=== PATIENT | female | born 1980 | race Caucasian/White ===

== ENCOUNTER 2016-04-16 15:25 | Inpatient (IN) | payer OTHER ==
[2016-04-16] MEDS ORDERED: MINERAL OIL 60 ML OIL TP PRN (15:40)
[2016-04-16] MEDS ORDERED: TERBUTALINE SULFATE 1 MG/ML VIAL IV PRN (15:40)
[2016-04-16] MEDS ORDERED: OXYTOCIN/RINGERS LACTATE 1,000 ML IV PRN (15:40)
[2016-04-16] MEDS ORDERED: LR 1,000 ML IV PRN (15:40)
[2016-04-16] MEDS ORDERED: EPSOM SALT 454 GM TP PRN (15:40)
[2016-04-16] MEDS ORDERED: LIDOCAINE 1% 30 ML SDV SC PRN (15:40)
[2016-04-16 15:55] LABS: % IMMATURE GRANULYOCYTES 0.5 % (0.0-1.1); ABSOLUTE IMMATURE GRANULOCYTES 0.06 10^3/uL (0.00-0.10); ADD DIFF? NO; ADD MORPH? NO; ADD SCAN? NO; ATYPICAL LYMPHOCYTE FLAG 0 (0-99); FRAGMENT RBC FLAG 0 (0-99); HEMATOCRIT 38.1 % (38.0-47.0); HEMOGLOBIN 12.8 g/dL (12.6-16.3); LEFT SHIFT FLG 0 (0-99); LIPEMIA HEMOLYSIS FLAG 80 (0-99); MEAN CELL HEMOGLOBIN 28.1 pg (27.9-34.1); MEAN CELL HEMOGLOBIN CONCENTR. 33.6 g/dL (32.4-36.7); MEAN CELL VOLUME 83.6 fL (81.5-99.8); MEAN PLATELET VOLUME 11.2 fL (8.7-11.7); PLATELET CLUMPS FLAG 10 (0-99); PLATELET COUNT 199 10^3/uL (150-400); RED BLOOD CELL COUNT 4.56 10^6/uL (4.18-5.33); RED CELL DISTRIBUTION WIDTH 13.3 % (11.5-15.2)
[2016-04-16] MEDS ORDERED: fentaNYL 100 MCG/2 ML INJ ONE (16:07)
[2016-04-16] MEDS ORDERED: BUPIVACAINE 0.25% 30 ML SDV ONE (16:08)
[2016-04-16] MEDS ORDERED: fentaNYL 2MCG/ML/BUP 0.1% RTU 100 ML BAG EP ONE (16:08)
[2016-04-16] MEDS ORDERED: PHENYLEPHRINE HCL 100 MCG/ML SYR ONE (16:09)
[2016-04-16] MEDS ORDERED: AMMONIA AROMATIC 1 EACH AMP IH ONE ×2 (16:10→16:12)
[2016-04-16] MEDS ORDERED: TERBUTALINE SULFATE 1 MG/ML VIAL ONE (16:10)
[2016-04-16] MEDS ORDERED: LIDOCAINE 1% 30 ML SDV ONE (16:10)
[2016-04-16] MEDS ORDERED: MISOPROSTOL 200 MCG TAB ONE (16:11)
[2016-04-16] MEDS ORDERED: OXYTOCIN 10 UNIT/ML VIAL ONE ×2 (16:11→21:42)
[2016-04-16] MEDS ORDERED: PHENYLEPHRINE HCL 100 MCG/ML SYR IVP PRN (16:12)
[2016-04-16] MEDS ORDERED: NALOXONE HCL 0.4 MG/ML INJ IVP PRN (16:12)
[2016-04-16] MEDS ORDERED: LR 500 ML IV SCH (16:30)
[2016-04-16] MEDS ORDERED: fentaNYL 2MCG/ML/BUP 0.1% RTU 100 ML EP SCH (16:30)
--- NOTE | 2016-04-16 18:11 | GHP ---
[f rep st] PREOP HISTORY AND PHYSICAL DATE OF ADMISSION: 04/16/2016 PRE-ADMISSION DIAGNOSIS: Intrauterine at 39-2/7 weeks gestation, in active labor. HISTORY OF PRESENT ILLNESS: Kellie is a 35-year-old, 3, para 0-0-2-0, with a last menstrual p eriod of 07/09/2015 and an EDC of 04/21/2016, which was confirmed by a 10-week ultrasound. The patie sharon has had good care at [facility] since registration at 10 weeks and she has prog ressed to 39 weeks gestation without complication. She has a history of premature rupture of the membranes and abruption secondary to chorioamnionitis at 19 weeks with her 1st , and in this she has been treated with progesterone IM and then vaginal suppositories. Other than that, she has had normal labs in this , normal ultrasounds in this and progressed to 39 weeks. She began having contractions approximately noon on the , which became increasing i n intensity and severity. When she was admitted to the hospital her cervix is 5 cm, 80%, and -1 stat ion. The patient has received an epidural and immediately after the epidural there was a decel to the 60s for approximately 5 minutes. This resolved spontaneously with position change and oxygen . Currently, she had artificial rupture of the membranes with clear fluid and is 7 cm and the fetus is in the 130s with early decels category 1 and spontaneous accel. PAST OBSTETRICAL HISTORY: In June 2014, she had a 19-6/7 weeks premature rupture of the mem branes secondary to abruption and chorioamnionitis. That baby was a boy. In April of 2015, she h ad a missed AB at 8 weeks. She had a D and C, and trisomy 21 was suspicious, unverified prior to her miscarriage. This is her 3rd . PAST MEDICAL HISTORY: The patient has history of depression which has become situational with the la st 2 failed pregnancies. She is not on any current medications and she is doing well now. She has a history of migraines. No current medications. 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 Her was checked and he is negative. No other medical problems. PAST SURGICAL HISTORY: [place] teeth extraction and D and C. ALLERGIES: Amoxicillin; she is not sure her reaction. MEDICATIONS: Include: Zoloft, vitamins and probiotics. LABS: She is A positive, antibody negative, RPR nonreactive, rubella immune, hepatitis negative, HIV negative. Cystic fibrosis positive carrier. SMA fragile X were negative. Pap was normal. Gonorrh ea and chlamydia normal. AFP normal. Verifi was normal. A 1-hour GTT was 119. Hematocrit 34.6. GB S is negative. SOCIAL HISTORY: She is . She lives with her , Bossman. She works at [employer], she is a lectu rer. She denies tobacco, alcohol, and drug use. FAMILY HISTORY: Paternal grandfather of Alzheimer's. Mother and maternal grandmother are smoke rs. Maternal grandfather had diabetes. OBJECTIVE: GENERAL: Today, she is afebrile. VITAL SIGNS: Stable. ABDOMEN: Currently, baby is in the 140s, category 1 with early decelerations. Contractions every 2 to 3 minutes. PELVIC: Cervix is 80%, 0 station. She is ruptured for clear fluid. ASSESSMENT/PLAN: A 35-year-old, 3, para 0-0-2-0, 39-2/7 weeks gestation in spontaneous labor . Patient was comfortable with her epidural. We will follow her with expectant management for labor . status is reassuring. /[id number]/MODL
[2016-04-16] MEDS ORDERED: CALCIUM CARBONATE 500 MG CHEWABLE TAB PO PRN (19:22)
[2016-04-16] MEDS ORDERED: HYDROCORTISONE 0.5% CREAM TP PRN (20:03)
[2016-04-16] MEDS ORDERED: HYDROCODONE/APAP 5/325 TAB PO PRN (20:03)
[2016-04-16] MEDS ORDERED: SIMETHICONE 80 MG TAB CHEW PO PRN (20:03)
[2016-04-16] MEDS ORDERED: ACETAMINOPHEN 325 MG TAB PO PRN (20:03)
--- NOTE | 2016-04-16 20:06 | OBPROC ---
- Labor and Delivery Onset of Contractions Date: 04/16/16 Onset of Contractions Time: 14:00 Onset of Contractions Type: Spontaneous Rupture of Membranes Date: 04/16/16 Rupture of Membranes Time: 17:15 Rupture of Membranes Type: Artificial Amniotic Fluid Color: Clear Dilation Complete Time: 19:00 Delivery Type: Spontaneous Placenta Delivery Date: 04/16/16 Placenta Delivery Time: 19:49 Episiotomy/Laceration: 2nd Degree, Perineal Repair: 2-0, Vicryl EBL: 200 Complications: None - Medications Labor Augmentation/Induction Meds Used: None Anesthesia: Epidural - Pitcher Info A Delivery Date: 04/16/16 Delivery Time: 19:45 Sex of : Male Score (1 Min): 8 Score (5 Min): 9
[2016-04-16] MEDS: IBUPROFEN 600 MG TAB PO PRN (20:45)
[2016-04-16] MEDS ORDERED: NIFEdipine 10 MG CAP PO SCH (21:00)
[2016-04-17 00:06] VITALS: O2SAT 95
[2016-04-17] MEDS: IBUPROFEN 600 MG TAB PO PRN ×4 (02:49→20:46)
--- NOTE | 2016-04-17 07:28 | OBPROG ---
OBG Progress Note Assessment/Plan: Assessment: s/p PPD # 1 - pt is stable Plan: Continue routine pp care Encourage ambulation Plan for d/c home in am 04/1804/17/16 07:26 Subjective: Pt seen and examined. She is eating breakfast. Doing well with no complaints. Minimal cramping, moderate lochia. without difficulty. Objective: 04/16/16 15:45 Patient ABO/Rh A POSITIVE 04/16/16 15:45 Temp Pulse Resp BP Pulse Ox 36.8 C 70 16 103/60 95 04/16/16 23:50 04/16/16 23:50 04/16/16 23:50 04/16/16 23:50 04/16/16 23:50 Uterine Position/Fundal Height: Umbilicus -2 Uterine Tone: Firm - Physical Exam General Appearance: WD/WN, alert, no apparent distress Respiratory: lungs clear, normal breath sounds Cardiac/Chest: regular rate, rhythm Abdomen: normal bowel sounds, non-tender, soft, flatus (+) Genitourinary: lochia (moderate) Extremities: non-tender, normal inspection Neuro/Psych: alert, normal mood/affect, oriented x 3 ICD10 Worksheet Patient Problems: Problems Problem Status Diagnosed (spontaneous vaginal delivery) Acute At high risk for complications of intrauterine (IUP) Acute Oligohydramnios in second trimester Acute - ICD10 Problem Qualifiers (1) (spontaneous vaginal delivery)
[2016-04-17] MEDS: DOCUSATE SODIUM 100 MG CAP PO PRN ×2 (08:54→20:46)
[2016-04-18] MEDS: IBUPROFEN 600 MG TAB PO PRN ×2 (02:47→08:57)
--- NOTE | 2016-04-18 07:14 | OBPROG ---
OBG Progress Note Assessment/Plan: Assessment: s/p PPD # 2 - pt is stable Plan: Plan for d/c home today Instructions reviewed with pt No Rx given Cont PNV Pelvic rest RTC in 6 weeks for pp visit 04/18/16 07:12 Subjective: Pt seen and examined. Doing well with no complaints. Minimal cramping, moderate lochia. without difficulty. Objective: 04/16/16 15:45 Patient ABO/Rh A POSITIVE 04/16/16 15:45 Temp Pulse Resp BP Pulse Ox 36.2 C 77 16 111/70 95 04/17/16 20:45 04/17/16 20:45 04/17/16 20:45 04/17/16 20:45 04/17/16 20:45 Uterine Position/Fundal Height: Umbilicus -2 Uterine Tone: Firm - Physical Exam General Appearance: WD/WN, alert, no apparent distress Respiratory: lungs clear, normal breath sounds Cardiac/Chest: regular rate, rhythm Abdomen: normal bowel sounds, non-tender, soft, flatus (+) Genitourinary: lochia (moderate) Extremities: non-tender, normal inspection Neuro/Psych: alert, normal mood/affect, oriented x 3 ICD10 Worksheet Patient Problems: Problems Problem Status Diagnosed (spontaneous vaginal delivery) Acute At high risk for complications of intrauterine (IUP) Acute Oligohydramnios in second trimester Acute - ICD10 Problem Qualifiers (1) (spontaneous vaginal delivery)
[2016-04-18 08:16] VITALS: BP 111/72; PULSE 92; RESP 18; TEMP 97.9
[2016-04-18] MEDS: DOCUSATE SODIUM 100 MG CAP PO PRN (08:57)
== END 2016-04-18 14:15 | disposition home or self-care (01) | DRG 775 ==
LOC: FLD 15:25 → FOB 22:08
PROVIDERS: ADMIT Obstetrics & Gynecology; ATTEND Obstetrics & Gynecology
PROC: 0KQM0ZZ Repair Perineum Muscle, Open Approach (ICD-10-PCS; principal; 2016-04-16)
PROC: 10907ZC Drainage of Amniotic Fluid, Therapeutic from Products of Conception, Via Natural or Artificial Opening (ICD-10-PCS; principal; 2016-04-16)
PROC: 10E0XZZ Delivery of Products of Conception, External Approach (ICD-10-PCS; principal; 2016-04-16)
DX: O70.1 Second degree perineal laceration during delivery (principal); Z3A.39 39 weeks gestation of pregnancy; Z37.0 Single live birth; O09.523 Supervision of elderly multigravida, third trimester
CPT/HCPCS: J2370; J3010; J3105

== ENCOUNTER → 2016-07-02 | Outpatient (CLI) | payer OTHER | LOC: FIMAGING 09:32 | PROVIDERS: ATTEND Advanced Practice Midwife | DX: N63 Unspecified lump in breast (principal) ==

== ENCOUNTER → 2016-09-30 | Outpatient (CLI) | payer OTHER | LOC: FIMAGING 08:49 | PROVIDERS: ATTEND Advanced Practice Midwife | DX: Z87.2 Personal history of diseases of the skin and subcutaneous tissue (principal); Z09 Encounter for follow-up examination after completed treatment for conditions other than malignant neoplasm ==